=== PATIENT | female | born 2000 | race Caucasian/White ===

== ENCOUNTER 2024-07-08 17:55 | Emergency (ER) | payer MEDICAID, SELFPAY ==
[2024-07-08] MEDS ORDERED: Bupivacaine 0.5% 10 ML VIAL ONE (18:13)
== END 2024-07-08 18:23 | disposition home or self-care (01) ==
LOC: BURERS 17:55
DX: K04.7 Periapical abscess without sinus (principal)
CPT/HCPCS: 64400; J3490